=== PATIENT | female | born 1990 ===

== ENCOUNTER 2017-10-22 03:28 | Inpatient (IN) | payer MEDICAID ==
--- NOTE | 2017-10-22 04:20 | OBADHP ---
Datetime: 10/22/2017 04:16 Admit Comment, IP Provider: @ 38.6 wks GA c/o of ctx pain since 9am thta are now every 5 min intesnity, conrado lof, vb, +FM OB: P0 GY:N deies PMH: Anemia PSH: denies FHX non contribotyr MEDS: PNV, Iron NKDA SHX: denies A/P @ 38.6 wks GA in early labor with intermittent declerations admit prolonged monitoring admission labs cont tooc and efm analgeia prn oxygen, left lateral decubitus position plan as per PMD Dr Morris Pelvic Type - PN: Adequate Extremities - PN: Normal Abdomen - PN: Normal Back - PN: Normal Breast - PN: Not Done Lungs - PN: Normal Heart - PN: Normal Thyroid - PN: Normal Neurologic - PN: Normal HEENT - PN: Normal General - PN: Normal Presentation-Admit: Vertex FHR - Baseline A Provider: 125 Membranes, Provider: Bulging Contraction Comments Provider: q 5 min Gestation - Est Wks by US: 38.6 Vital Signs Provider: Reviewed; Within Normal Limits IP Chief Complaint: Uterine contractions NICHD Variability Prov Fetus A: Moderate 6-25bpm NICHD Decel Fetus A IP Provider: Variable Dilatation, Provider: 1 Effacement, Provider: 60 Station, Provider: -2 Genitourinary Exam: Normal DTRs - PN: Normal EGA AdmitDate IP: 38.6 IP Adm Impression: Term, intrauterine IP Admit Plan: Admit to unit
[2017-10-22] MEDS ORDERED: Penicillin G 5 Million Unit Vial IVPB ONE ×2 (04:21→04:54)
[2017-10-22] MEDS ORDERED: Lactated Ringer's 1,000 ML IV ONE (04:21)
[2017-10-22 05:12] LABS: BASO % 0.2 % (0.0-2.0); EOS % 0.1 % (0.0-4.0); MONO % 4.1 % (0.0-10.0)
[2017-10-22 05:15] LABS: SQUAMOUS EPITHIAL 14 /hpf (0-5); URINE BACTERIA RARE (<OCC); URINE BILIRUBIN 1+ (NEGATIVE); URINE BLOOD 1+ (NEGATIVE); URINE CLARITY Hazy (Clear); URINE COLOR Amber (YELLOW); URINE GLUCOSE (UA) NORMAL (Normal); URINE LEUKOCYTE ESTERASE NEG Leu/uL (Negative); URINE PROTEIN 2+ mg/dL (NEGATIVE)
[2017-10-22 05:19] LABS: HEMOGLOBIN 8.5 g/dL (11.0-16.0); LYMPH # 0.8 K/uL (1.0-4.3); MEAN CELL VOLUME 70.8 fL (81.0-99.0); MEAN CORPUSCULAR HEMOGLOBIN 21.8 pg (27.0-31.0); MEAN CORPUSCULAR HGB CONC 30.8 g/dL (33.0-37.0); MEAN PLATELET VOLUME 9.6 fL (7.2-11.7); MONO # 0.4 K/uL (0.0-0.8); NEUT % 86.6 % (50.0-75.0); NRBC % 0.1 % (0.0-2.0); PLATELET COUNT 219 K/uL (130-400); WHITE BLOOD COUNT 9.2 K/uL (4.8-10.8)
[2017-10-22 05:21] LABS: ALB/GLOB RATIO 1.1 (1.0-2.1); ALBUMIN 3.5 g/dL (3.5-5.0); ALT/SGPT 322 U/L (9-52); AST/SGOT 176 U/L (14-36); BLOOD UREA NITROGEN 9 mg/dL (7-17); CALCIUM 8.5 mg/dl (8.6-10.4); GFR AFRICAN-AMERICAN > 60; GFR NON-AFRICAN AMERICAN > 60
[2017-10-22] MEDS ORDERED: Oxytocin 30 UNIT 30 UNITS/500 ML BAG IV ONE ×2 (05:29→06:51)
[2017-10-22 05:50] LABS: HEPATITIS B SURFACE AG Negative (NEGATIVE)
[2017-10-22] MEDS ORDERED: Nalbuphine HCL 10 mg/ml Ampule IVP ONE (06:53)
--- NOTE | 2017-10-22 07:24 | OBADHP ---
Datetime: 10/22/2017 07:21 FHR - Baseline A Provider: 130 Contraction Comments Provider: q1-4 Vital Signs Provider: Reviewed; Within Normal Limits NICHD Variability Prov Fetus A: Moderate 6-25bpm NICHD Accel Fetus A IP Provider: 15X15 FHR Category Provider Fetus A: Category I Dilatation, Provider: 3 Effacement, Provider: 70 Station, Provider: -3 Datetime: 10/22/2017 04:16 IP Hx Assessment: The History has been Reviewed and is Current EGA AdmitDate IP: 38.6
--- NOTE | 2017-10-22 07:25 | OBPN ---
Datetime: 10/22/2017 07:21 IP Progress Impression: Normal progression of labor IP Procedures: Artificial ROM; Sterile Vag Exam IP Progress Plan: Continue present management Contraction Comments Provider: q1-4 FHR - Baseline A Provider: 130 IP Progress Note Comment: pt was sen at bed side ve /-2 arom mod meconium cont pitocin anticipate Vital Signs Provider: Reviewed; Within Normal Limits NICHD Accel Fetus A IP Provider: 15X15 FHR Category Provider Fetus A: Category I NICHD Variability Prov Fetus A: Moderate 6-25bpm Dilatation, Provider: 3 Effacement, Provider: 70 Station, Provider: -3 Datetime: 10/22/2017 04:16 Membranes, Provider: Bulging Gestation - Est Wks by US: 38.6 Presentation-Admit: Vertex NICHD Decel Fetus A IP Provider: Variable
[2017-10-22] MEDS ORDERED: Bupivacaine HCl/FentaNYL Cit 100 ML EPI ONE ×2 (07:38→08:51)
[2017-10-22 07:59] LABS: LYMPHOCYTE 5 % (20-40); MONOCYTE 2 % (0-10); NEUTROPHIL 93 % (50-75); TOTAL CELLS COUNTED 100
[2017-10-22 08:00] LABS: ANISOCYTOSIS SLIGHT; HYPOCHROMIC SLIGHT; OVALOCYTES SLIGHT; PLATELET ESTIMATE NORMAL (NORMAL)
[2017-10-22] MEDS ORDERED: Bupivacaine HCl 0.5% PF (30 ml) Inj ONE (08:10)
[2017-10-22] MEDS ORDERED: Benzocaine/Menthol 20%-0.5% Topical Spray (60 ml) TOP PRN (12:05)
[2017-10-22] MEDS ORDERED: Oxycodone/Acetaminophen 5/325 mg Tab PO PRN ×2 (12:05)
--- NOTE | 2017-10-22 12:07 | OBPN ---
Datetime: 10/22/2017 12:05 IP Progress Impression: Normal progression of labor IP Procedures: Sterile Vag Exam Contraction Comments Provider: q1-4 FHR - Baseline A Provider: 130 IP Progress Note Comment: pt was examined at bed side ve fd/1000 start pitocin aticipate pushing NICHD Accel Fetus A IP Provider: 15X15 FHR Category Provider Fetus A: Category I NICHD Variability Prov Fetus A: Moderate 6-25bpm Dilatation, Provider: 10 Effacement, Provider: 100 Station, Provider: 0
[2017-10-22 17:52] LABS: RAPID PLASMA REAGIN NONREACTIVE (NONREACTIVE)
[2017-10-23 08:38] LABS: BASO % 0.3 % (0.0-2.0); EOS % 0.3 % (0.0-4.0); HEMOGLOBIN 7.4 g/dL (11.0-16.0); LYMPH # 1.3 K/uL (1.0-4.3); LYMPH % 11.5 % (20.0-40.0); MEAN CELL VOLUME 70.7 fL (81.0-99.0); MEAN CORPUSCULAR HEMOGLOBIN 22.4 pg (27.0-31.0); MEAN CORPUSCULAR HGB CONC 31.7 g/dL (33.0-37.0); MEAN PLATELET VOLUME 9.5 fL (7.2-11.7); MONO # 0.6 K/uL (0.0-0.8); MONO % 5.1 % (0.0-10.0); NEUT # 9.3 K/uL (1.8-7.0); NEUT % 82.8 % (50.0-75.0); RBC 3.3 Mil/uL (3.80-5.20); RED CELL DISTRIBUTION WIDTH 17.8 % (11.5-14.5); WHITE BLOOD COUNT 11.2 K/uL (4.8-10.8)
[2017-10-23 10:54] VITALS: RESP 18
[2017-10-24 07:19] LABS: BASO % 0.4 % (0.0-2.0); EOS # 0.1 K/uL (0.0-0.7); LYMPH # 1.2 K/uL (1.0-4.3); LYMPH % 16.3 % (20.0-40.0); MEAN CELL VOLUME 71.3 fL (81.0-99.0); MEAN CORPUSCULAR HEMOGLOBIN 22.4 pg (27.0-31.0); MEAN CORPUSCULAR HGB CONC 31.3 g/dL (33.0-37.0); MEAN PLATELET VOLUME 9.5 fL (7.2-11.7); MONO # 0.4 K/uL (0.0-0.8); MONO % 5.6 % (0.0-10.0); NEUT # 5.5 K/uL (1.8-7.0); NEUT % 76.7 % (50.0-75.0); RBC 3.14 Mil/uL (3.80-5.20); RED CELL DISTRIBUTION WIDTH 17.9 % (11.5-14.5); WHITE BLOOD COUNT 7.1 K/uL (4.8-10.8)
[2017-10-24 08:51] VITALS: BP 100/68; PULSE 83; TEMP 98.6; O2SAT 98
--- NOTE | 2017-10-24 10:26 | OBPPN ---
Datetime: 10/24/2017 10:22 PP Pain Prov: Within normal limits PP Nausea Prov: Denies PP Flatus Prov: Yes PP Abdomen/Uterus Prov: Normal PP Lochia Prov: Normal PP Extremities Prov: Normal PP Impression Prov: Normal progression PP Plan Prov: Discharge PP Progress Note Prov: pt was seen at bed side, pain under control,no n/v, tolerating deit, voiding, min ocha, flatus + ppd#2 s/p dc home no sex motrin prn f/u in 6wek Vital Signs Provider PP: Reviewed; Within Normal Limits
--- NOTE | 2017-10-24 10:26 | OBDCSUM ---
Datetime: 10/24/2017 10:23 Discharged to, Provider: Home Follow up at, Provider: 3wek Discharge Diagnosis, Provider: Term Delivered Follow up in weeks, Provider: dr hernan Miller Activity Restrictions: No sexual activity; Nothing in vagina - [place], tampons, douche Discharge Comment, Provider: no sex motrin prn f/u in 3we
--- NOTE | 2017-10-24 12:29 | PCM.PSYCH ---
Initial Psychiatric Evaluation - Initial Psychiatric Evaluation Type of Admission: Voluntary Legal Status: Capacity History of Present Illness and Precipitating Events: Cleared for discharge. Full note to follow Current Medications: Active Medications Generic Name Dose Route Start Last Admin Trade Name Freq PRN Reason Stop Dose Admin Benzocaine/Menthol 0 ml 10/22/17 12:05 10/22/17 17:45 Dermoplast 20%-0.5% TOP 60 ml Q6 PRN Administration Perineal Discomfort Docusate Sodium 100 mg 10/23/17 10:00 10/24/17 09:47 Colace PO 100 mg BID LOCO Administration Ferrous Sulfate 325 mg 10/23/17 10:00 10/24/17 09:47 Feosol PO 325 mg TID LOCO Administration Ibuprofen 600 mg 10/22/17 12:05 10/23/17 10:07 Motrin Tab PO 600 mg Q6 PRN Administration Pain, Mild (1-3) Oxycodone/Acetaminophen 1 tab 10/22/17 12:05 Percocet 5/325 Mg Tab PO 10/25/17 12:06 Q4H PRN Pain, moderate (4-7) Oxycodone/Acetaminophen 2 tab 10/22/17 12:05 Percocet 5/325 Mg Tab PO 10/25/17 12:06 Q4H PRN Pain, severe (8-10) Past Psychiatric History - Past Psychiatric History Pertinent Medical Hx (Current Medical&Sleep Prob, Allergies): Allergies Allergy/AdvReac Type Severity Reaction Status Date / Time No Known Allergies Allergy Verified 10/22/17 04:21 Ferrous Sulfate [Feosol] 325 mg PO BID #30 tab 10/24/17 Ibuprofen [Motrin Tab] 800 mg PO Q6 PRN #30 tab 10/24/17
--- NOTE | 2017-10-24 17:33 | OBDS ---
DELIVERY PERSONNEL Delivery Doctor: Lazaro Morris MD [place]: Benjamin Mcghee RN Anesthesiologist: DR PATEL MATERNAL INFORMATION Delivery Anesthesia: Epidural Estimated Blood Loss (ml): 300 Provider Comments: dr morris private vaccum ada. 9/9 no com end clean cord gas send LABOR SUMMARY EDC: 10/30/2017 00:00 No. Babies in Womb: 1 Labor Anesthesia: Epidural LABOR INFORMATION Complete Dilatation: 10/22/2017 10:30 Group B Beta Strep: Done, Result Unknown MEMBRANES Membranes Rupture Method: Artificial Rupture of Membranes: 10/22/2017 07:15 Length of Rupture (hrs): 5.28 Amniotic Fluid Color: Light Meconium Amniotic Fluid Amount: Scant Amniotic Fluid Odor: Normal STAGES OF LABOR Stage 2 hrs: 2 Stage 2 min: 2 Stage 3 hrs: 0 Stage 3 min: 3 VAGINAL DELIVERY Episiotomy: Right Mediolateral Laceration Extension: N/A Laceration Type: None Laceration Repair Note: repaired with 2 and 3 chromic Initial Vag Sponge Count: 10 Final Vag Sponge Count: 10 Initial Vag Sharps Count: 2 Final Vag Sharps Count: 2 Sponge Count Correct: Yes BABY A INFORMATION Infant Delivery Date/Time: 10/22/2017 12:32 Method of Delivery: Vaginal Born in Route : No : N/A Forceps: N/A Vacuum Extraction: Successful Shoulder Dystocia : Yes SHOULDER DYSTOCIA BABY A Infant Delivery Date/Time: 10/22/2017 12:32 PRESENTATION/POSITION BABY A Presentation: Cephalic Cephalic Presentation: Vertex Vertex Position: Left Occipital Anterior Breech Presentation: N/A PLACENTA INFORMATION BABY A Placenta Delivery Time : 10/22/2017 12:35 Placenta Method of Delivery: Spontaneous Placenta Status: Delivered SCORES BABY A Heart Rate 1 min: >100 bpm Resp Effort 1 min: Good Cry Reflex Irritability 1 min: Cough or Sneeze or Pulls Away Muscle Tone 1 min: Active Motion Color 1 min: Body [place], Extremities Blue SCORE 1 MIN: 9 Heart Rate 5 min: >100 bpm Resp Effort 5 min: Good Cry Reflex Irritability 5 min: Cough or Sneeze or Pulls Away Muscle Tone 5 min: Active Motion Color 5 min: Body [place], Extremities Blue SCORE 5 MIN: 9 INFANT INFORMATION BABY A Gestational Age at Delivery: 38.6 Gestational Status: Term Outcome : Liveborn Infant Condition : Stable Sex: Male IDENTIFICATION/MEDS BABY A ID Band Number: [id number] ID Band Location: Left Leg; Left Arm Sensor Applied: Yes Sensor Number: [id number] Sensor Location : Cord Clamp WEIGHT/LENGTH BABY A Birthweight (gms): 3005 Infant Weight (lb): 6 Infant Weight (oz): 10 Infant Length Inches: 19.50 Length cms: 49.5 CORD INFORMATION BABY A No. Cord Vessels: 3 Nuchal Cord : N/A Cord Blood Taken: Yes Infant Suction: Mouth; Nose ASSESSMENT BABY A Complications: None Physical Findings at Delivery: Within Normal Limits Physical Findings Other: VACUUM DELIVERY Infant Respirations: Appears Normal Hand Plug Shaper/ALS Called : Yes Infant Care By: DR BARNES Transferred To: [facility]
== END 2017-10-24 15:35 | disposition home or self-care (01) | DRG 373 ==
LOC: C.EROB 03:28 → C.4D 04:14 → C.4M 14:23
PROVIDERS: ADMIT Obstetrics & Gynecology; ATTEND Obstetrics & Gynecology
PROC: 0W8NXZZ Division of Female Perineum, External Approach (ICD-10-PCS; principal; 2017-10-22)
PROC: 10D07Z6 Extraction of Products of Conception, Vacuum, Via Natural or Artificial Opening (ICD-10-PCS; 2017-10-22)
PROC: 10907ZC Drainage of Amniotic Fluid, Therapeutic from Products of Conception, Via Natural or Artificial Opening (ICD-10-PCS; 2017-10-22)
DX: O66.0 Obstructed labor due to shoulder dystocia (principal); O77.0 Labor and delivery complicated by meconium in amniotic fluid; Z3A.38 38 weeks gestation of pregnancy; Z37.0 Single live birth